=== PATIENT | female | born 1950 | race American Indian/Alaskan Native ===

== ENCOUNTER 2017-11-03 10:33 | Outpatient (CLI) | payer MEDICARE ==
--- NOTE | 2017-11-03 16:44 | XRay Report ---
XRAYCERVICAL SPINE THREE VIEWS: 11/03/17 10:33:00 CLINICAL: Neck pain. COMPARISON: 10/04/08 FINDINGS: Normal vertebral body height, alignment and disk spaces through C7. The C7-T1 relationship is not demonstrated. The posterior elements are relatively dense compared to the vertebral bodies at all levels but some of this is not significantly changed compared to the prior exam. There is greater facet joint sclerosis from C3-4 through C7-T1. No fracture or subluxation. Normal odontoid and C1. Surgical clips in the anterior soft tissues near the larynx. IMPRESSION: Facet joint arthropathy from C3-4 through C7-T1.
--- NOTE | 2017-11-03 22:31 | XRay Report ---
FINAL REPORT PROCEDURE: Lumbar spine. TECHNIQUE: Three views. HISTORY: LUMBAR SPONDYLOSIS COMPARISON: No prior studies are available for comparison. FINDINGS: The lumbar vertebrae have normal height and satisfactory alignment. There are no fractures. There is grade 1 spondylolisthesis at L4-5. There is moderate disc space narrowing at L4-5. The sacrum and sacroiliac joints are unremarkable. IMPRESSION: Grade 1 spondylolisthesis at L4-5.
== END 2017-11-03 10:34 | disposition home or self-care (01) ==
LOC: SPVIMAG 10:33
PROVIDERS: ATTEND Physical Medicine & Rehabilitation
DX: M43.16 Spondylolisthesis, lumbar region (principal); M12.88 Other specific arthropathies, not elsewhere classified, other specified site; M47.816 Spondylosis without myelopathy or radiculopathy, lumbar region
CPT/HCPCS: 72040; 72100